=== PATIENT | male | born 1955 | race Caucasian/White ===

== ENCOUNTER 2025-01-19 18:00 | Emergency (ER) | payer OTHER, SELFPAY ==
[2025-01-19 18:06] VITALS: BP 120/74
[2025-01-19 18:35] LABS: Hematocrit 40.3 % (39.0-52.0); Hemoglobin 14.0 g/dL (13.0-18.0); Mean Corp Hgb Conc. 34.7 g/dL (33.0-37.0); Mean Corpuscular Volume 86.5 fL (80.0-94.0); Nucleated Red Blood Cells % 0 % (-); Platelet Count 196 10^3/uL (130-400); Red Cell Dist. Width 12.8 % (11.5-14.5)
[2025-01-19 18:57] LABS: ALT (SGPT) 57 U/L (0-50); AST (SGOT) 53 U/L (17-59); Albumin 4.3 g/dl (3.5-5.0); Alkaline Phosphatase 62 U/L (38-126); Blood Urea Nitrogen 19 mg/dl (9-20); Calcium 8.9 mg/dl (8.4-10.2); Carbon Dioxide 22 mmol/L (22-30); Chloride 104 mmol/L (98-107); Glucose 186 mg/dl (70-99); Potassium 3.8 mmol/L (3.5-5.1); Sodium 132 mmol/L (135-145); Total Protein 7.4 g/dl (6.3-8.2); eGFR > 60.00
[2025-01-19 19:07] LABS: COVID-19 Antigen Negative (Negative)
--- NOTE | 2025-01-19 22:18 | ED.GENMED ---
History of Present Illness
General
Chief Complaint: Fever
Time Seen by Provider: 01/19/25 22:18
History of Present Illness
History of Present Illness:
TIME OF INITIAL EVALUATION
- 10:15 PM
REVIEW OF OLD RECORDS
- The patient has history of diabetes and high blood pressure. I looked for old records in [facility] however there is no significant old records available for review.
Note:
CHIEF COMPLAINT(S)
Fever and altered mental status.
HISTORY OF PRESENT ILLNESS
The patient is a 69-year-old male who presented to the emergency department following a visit to urgent care in [facility] earlier in the day for fever and chills. He reports potential exposure to ticks, as he has frequent exposure to [place]
areas. Symptoms began two days ago on Wednesday with fever, chills, headache, neck pain, and back pain. He also experienced delirium upon arrival in the area, noted to be disoriented and not making sense when talking. The patient had chills, neck
stiffness, and sweats last night, resulting in a 'wet out' experience. He was given acetaminophen (Tylenol) at 5 PM, leading to a decrease in symptoms by the time of arrival around 6 PM.
Laboratory results from urgent care revealed a normal white blood cell count and hemoglobin level, with slightly low sodium levels. A Lyme disease blood test was not completed but was discussed. The patient began doxycycline treatment. His mental
status appears appropriate during the examination. He denies urinary symptoms and respiratory issues. Vital signs indicate a fall in temperature to 99.2�F from a previous high of 102.1�F.
PHYSICAL EXAM
- Neck: Full range of motion without nuchal rigidity.
- Lungs: Clear auscultation bilaterally.
- Neurologic: Cognition and orientation appear appropriate during the encounter.
- Skin: No visible rash suggestive of a Lyme disease erythema migrans rash.
- General: Well appearing in no distress
- HEENT: Moist oral mucosa
- Cardiovascular: No murmurs, normal heart rate, regular rhythm, No chest wall tenderness
- Abdomen: Soft with no peritoneal signs, no tenderness
- Extremities: Nontender, no edema, moves all extremities equally
- Skin: No rash, no lesions
PROBLEM LIST
Acute:
1. Fever with potential tick-borne illness.
2. Delirium possibly related to infection and fever.
Chronic:
1. Diabetes mellitus.
PLAN
1. Continue doxycycline treatment for suspected tick-borne illness, as previously initiated.
2. Blood cultures to rule out bacteremia due to prior altered mental status.
3. Administer acetaminophen 1,000 mg (two extra strength tablets) every six hours for fever management.
4. Discharge instructions to include follow-up for results and continued symptom management.
5. Monitor mental status closely, and if delirium continues despite fever resolution, return for further evaluation.
DIFFERENTIAL DIAGNOSIS
The Differential Diagnosis includes, in no particular order and is not limited to:
1. Tick-borne illness (e.g., Lyme disease, Ehrlichiosis, Anaplasmosis)
2. Viral infection (e.g., Influenza)
3. Bacterial meningitis
4. Viral meningitis
5. Pneumonia
6. Sepsis
7. Urinary tract infection
8. Hyperglycemic hyperosmolar state (due to diabetes)
9. Electrolyte imbalance (e.g., hyponatremia)
10. Medication side effects or adverse reactions
RADIOLOGY
- Lungs are clear, no clear indication for chest x-ray as he has no pneumonia symptoms
EKG
- Not indicated
LABS
- White count is normal, hemoglobin normal, sodium slightly low at 132, LFTs normal, glucose 186. COVID-negative. Lyme testing pending.
UPDATE
-SUMMARY OF ENCOUNTER
The patient, a 69-year-old male, presented to the emergency department with a fever and altered mental status, with a history of potential tick exposure. The patient had been seen earlier in the day at urgent care and started on doxycycline for
suspected tick-borne illness. On evaluation, the patient exhibited reduced temperature with acetaminophen administration, bringing it down from 102.1�F to 99.2�F. The patient displayed no signs of acute distress or altered behavior at the time of
assessment. Continued antibiotic treatment was advised, and blood cultures were planned to rule out bacteremia due to previous altered mental status. It was also decided against performing a lumbar puncture as the risks outweighed the benefits given
the current status. It was concluded to monitor symptoms closely and return for care if the condition worsens, especially if there is a significant recurrence of high fever or disorientation.
DISPOSITION
Discharge.
ASSESSMENT
The patient is likely experiencing a tick-borne illness given the exposure history and has a fever that has responded to acetaminophen. The previous delirium appears related to the fever rather than an acute neurological condition.
PLAN
1. Perform blood cultures to rule out bacteremia due to prior altered mental status.
2. Continue doxycycline as initiated for suspected tick-borne illness.
3. Advise acetaminophen as needed for fever management.
4. Monitor for any worsening symptoms or return of altered mental status, advising a follow-up if these occur.
5. Return to the emergency department if the fever significantly worsens or the patient develops severe symptoms.
INDEPENDENT REVIEW OF LABS AND INTERPRETATION OF TESTS
My independent review indicates the patients sodium levels were slightly low, while white blood cell count and hemoglobin levels were normal.
PATIENT EDUCATION AND COUNSELING
The patient was advised to continue acetaminophen for fever management and to maintain the antibiotic regimen. Instructions were provided to return to the emergency department if symptoms, particularly fever and mental status, worsen significantly.
FOLLOW-UP INSTRUCTIONS
The patient is advised to follow up for further evaluation if symptoms worsen or if there is concern regarding the progression of the illness.
MEDICATION RECONCILIATION
- Continued doxycycline for suspected tick-borne illness as initiated.
- Acetaminophen instructed for fever management as needed.
MEDICAL DECISION MAKING
- Number and Complexity of Problems Addressed: Chronic conditions affecting care include diabetes mellitus. Differential Diagnosis includes potential tick-borne illness, viral infection, and others as listed.
- Data:
- Category 1: Laboratory tests reviewed include a normal white blood cell count and hemoglobin level, with slightly low sodium levels from urgent care visit. Blood cultures were considered and planned for further evaluation.
- Category 2: N/A
- Category 3: Discussion of management with the medical team regarding the blood cultures and decision not to perform lumbar puncture due to current patient stability.
- Risk: Prescription medication was prescribed (doxycycline) and monitoring was recommended. Potential admissions considered but the patient was stable for discharge with instructions.
DIAGNOSIS
1. Possible tick-borne illness (ICD-10 A68.9).
2. Fever (ICD-10 R50.9).
3. Delirium, attributed to infection and fever (ICD-10 F05).
SUMMARY OF ENCOUNTER
The patient, a 69-year-old male, presented to the emergency department with a fever and altered mental status, with a history of potential tick exposure. The patient had been seen earlier in the day at urgent care and started on doxycycline for
suspected tick-borne illness. On evaluation, the patient exhibited reduced temperature with acetaminophen administration, bringing it down from 102.1�F to 99.2�F. The patient displayed no signs of acute distress or altered behavior at the time of
assessment. Continued antibiotic treatment was advised, and blood cultures were planned to rule out bacteremia due to previous altered mental status. It was also decided against performing a lumbar puncture as the risks outweighed the benefits given
the current status. It was concluded to monitor symptoms closely and return for care if the condition worsens, especially if there is a significant recurrence of high fever or disorientation.
DISPOSITION
Discharge.
ASSESSMENT
The patient is likely experiencing a tick-borne illness given the exposure history and has a fever that has responded to acetaminophen. The previous delirium appears related to the fever rather than an acute neurological condition.
PLAN
1. Perform blood cultures to rule out bacteremia due to prior altered mental status.
2. Continue doxycycline as initiated for suspected tick-borne illness.
3. Advise acetaminophen as needed for fever management.
4. Monitor for any worsening symptoms or return of altered mental status, advising a follow-up if these occur.
5. Return to the emergency department if the fever significantly worsens or the patient develops severe symptoms.
INDEPENDENT REVIEW OF LABS AND INTERPRETATION OF TESTS
My independent review indicates the patients sodium levels were slightly low, while white blood cell count and hemoglobin levels were normal.
PATIENT EDUCATION AND COUNSELING
The patient was advised to continue acetaminophen for fever management and to maintain the antibiotic regimen. Instructions were provided to return to the emergency department if symptoms, particularly fever and mental status, worsen significantly.
FOLLOW-UP INSTRUCTIONS
The patient is advised to follow up for further evaluation if symptoms worsen or if there is concern regarding the progression of the illness.
MEDICATION RECONCILIATION
- Continued doxycycline for suspected tick-borne illness as initiated.
- Acetaminophen instructed for fever management as needed.
MEDICAL DECISION MAKING
- Number and Complexity of Problems Addressed: Chronic conditions affecting care include diabetes mellitus. Differential Diagnosis includes potential tick-borne illness, viral infection, and others as listed.
- Data:
- Category 1: Laboratory tests reviewed include a normal white blood cell count and hemoglobin level, with slightly low sodium levels from urgent care visit. Blood cultures were considered and planned for further evaluation.
- Category 2: N/A
- Category 3: Discussion of management with the medical team regarding the blood cultures and decision not to perform lumbar puncture due to current patient stability.
- Risk: Prescription medication was prescribed (doxycycline) and monitoring was recommended. Potential admissions considered but the patient was stable for discharge with instructions.
DIAGNOSIS
1. Possible tick-borne illness (ICD-10 A68.9).
2. Fever (ICD-10 R50.9).
3. Delirium, attributed to infection and fever (ICD-10 F05).
Phy Exam
Physical Exam
Physical Exam:
See HPI
Course
Orders/Labs/Results
Orders:
Orders
01/19/25 18:22
COVID-19 Antigen Urgent
Source: Nasal Swab
Complete Blood Count/With Diff Urgent
Comprehensive Metabolic Panel Urgent
Lyme Progressive Urgent
Influenza A+B Rapid Molecular Urgent
[facility] Source: Nasal Swab
Specimen Description:
01/19/25 22:28
Acetaminophen [Tylenol] 1,000 mg PO NOW STA
01/19/25 22:30
Blood Culture Q30M
[facility] Source: Blood/Venous
Specimen Description:
01/19/25 23:00
Blood Culture Q30M
[facility] Source: Blood/Venous
Specimen Description:
Abnormal Lab Results
01/19/25
18:22
RBC 4.66 L 10^6/uL
(4.70-6.10)
Absolute Lymphs (auto) 0.7 L 10^3/uL
(1.2-3.4)
Neutrophils % 79.3 H %
(42.2-75.2)
Lymphocytes % 13.0 L %
(20.5-51.1)
Sodium 132 L mmol/L
(135-145)
Glucose 186 H mg/dl
(70-99)
ALT 57 H U/L
(0-50)
01/19/25 18:22
01/19/25 18:22
Vital Signs
Initial and Last Documented VS:
Initial Vital Signs
Temp Pulse Resp BP Pulse Ox
38.3 C H 76 18 120/74 94
01/19/25 18:06 01/19/25 18:06 01/19/25 18:06 01/19/25 18:06 01/19/25 18:06
Last Documented Vital Signs
Temp Pulse Resp BP Pulse Ox
36.8 C 76 18 120/74 94
01/19/25 22:28 01/19/25 18:06 01/19/25 18:06 01/19/25 18:06 01/19/25 22:20
*Pulse Oximetry
SaO2: 94
Patient hypoxic: no
*Critical Care Note
Total Time (30-74mins, 75-104mins- exclusive of procedures): Not Applicable
ED Attending Note
-
Portions of this chart may have been created with voice recognition software.� Occasional wrong word or��sound alike� substitutions may have occurred due to the inherent limitations of voice recognition software.
Discharge Plan
Departure
Patient Disposition: Home (Routine Discharge)
Date of Disposition: 01/19/25
Time of Disposition: 22:30
Patient with high blood pressure during this ER visit?: Yes
Discharge Problem:
Fever
Instructions: Fever, Adult (DC)
Activity Restrictions/Additional Instructions:
I strongly recommend taking Tylenol 1000 mg (2 extra strength Tylenol) every 6 hours over the next few days. Your white blood cell count is normal. Blood cultures are currently pending and a Lyme test is currently pending�you will only be notified
if these tests are abnormal. Continue doxycycline given the high likelihood of tickborne illness.
Interventions
Interventions:
*Risk Screen - Suicide Last Done: 01/19/25 18:08
*General Assessment Last Done: 01/19/25 18:08
*Neglect/Abuse Screening Last Done: 01/19/25 18:08
*ED COVID-19 Vaccine History Last Done: 01/19/25 18:08
Discharge Date and Time
Print Language: CANADIAN
[2025-01-19] MEDS: TYLENOL 1000 MG PO (22:52)
[2025-01-22 13:31] LABS: Lyme Antibody Screen, EIA Negative (Negative)
== END 2025-01-19 23:22 | disposition home or self-care (01) ==
LOC: EMR 18:00
PROVIDERS: Emergency Medicine; EMERGENCY PHYSICIAN Emergency Medicine
DX: R50.9 Fever, unspecified (principal); E11.9 Type 2 diabetes mellitus without complications; Z11.52 Encounter for screening for COVID-19
CPT/HCPCS: 99283; 80053; 85025; 86618; 87040; 87502; 87811